=== PATIENT | male | born 1965 | race African-American/Black ===

== ENCOUNTER 2017-08-21 09:52 | Emergency (ER) | payer SELFPAY ==
[2017-08-21] MEDS ORDERED: hydrALAZINE 20 MG/ML VIAL ONE (10:36)
[2017-08-21] MEDS ORDERED: Lisinopril 10 MG TAB ONE (10:37)
[2017-08-21 10:39] LABS: #Lymphocytes 1.9 thou/uL (1.20-3.40); #Monocytes 0.4 thou/uL (0.11-0.59); #Neutrophils 4.9 thou/uL (1.40-6.50); %Basophils 0.3 % (0.0-1.0); %Eosinophils 0.5 % (0.0-10.0); %Lymphocytes 26.3 % (21.0-51.0); %Monocytes 4.9 % (0.0-10.0); %Neutrophils 68.1 % (42.0-75.0); Hemoglobin 14.2 g/dL (14.0-18.0); Mean Corpuscular HGB CONC 34.1 g/dL (32.0-36.0); Mean Corpuscular Hemoglobin 30.5 pg (27.0-31.0); Mean Corpuscular Volume 89.6 fl (80.0-94.0); Mean Platelet Volume 8.3 fL (7.4-10.4); Platelet Count 253 thou/uL (130-400); RBC Distribution Width 11.6 % (11.5-14.5); Red Blood Cell (RBC) Count 4.65 mill/uL (4.70-6.10); White Blood Cell (WBC) Count 7.2 thou/uL (4.8-10.8)
[2017-08-21 11:02] LABS: ALT (SGPT) 17 U/L (8-55); AST (SGOT) 16 U/L (5-34); Albumin 3.7 g/dL (3.5-5.0); Alkaline Phosphatase 65 U/L (40-150); Anion Gap 14 mmol/L (10-20); BUN (Urea Nitrogen) 9 mg/dL (8.4-25.7); Bilirubin, Total 0.4 mg/dL (0.2-1.2); CK (CPK) 159 U/L (30-200); Calc. Creatinine Clearance 0 mL/min (70-130); Calcium 9.1 mg/dL (7.8-10.44); Carbon Dioxide 25 mmol/L (22-29); Chloride 101 mmol/L (98-107); Estimated GFR-MDRD Greater than 90; Glucose 257 mg/dL (70-105); Lipase 15 U/L (8-78); Potassium 3.9 mmol/L (3.5-5.1); Protein, Total 7.7 g/dL (6.0-8.3); Sodium 136 mmol/L (136-145)
[2017-08-21 11:03] LABS: CKMB 2.9 ng/mL (0-6.6); Troponin I Less than 0.010 ng/mL (< 0.028)
--- NOTE | 2017-08-21 12:37 | RAD ---
PORTABLE CHEST: DATE: 08/21/17. PROVIDED CLINICAL HISTORY: Chest pain. FINDINGS: Evaluation is limited by patient body habitus. The cardiac silhouette appears enlarged. Prominence of the pulmonary vasculature and pulmonary interstitium. No definite focal airspace disease. The le ft costophrenic angle is poorly defined which may reflect pleural fluid or artifact related to habitu s. No evidence for pneumothorax. IMPRESSION: Cardiomegaly and findings suggesting congestive failure or possible left pleural effusion. POS: LARRY
[2017-08-21 15:20] LABS: Troponin I Less than 0.010 ng/mL (< 0.028)
--- NOTE | 2017-10-08 15:09 | EKG ---
Test Reason : Blood Pressure : / mmHG Vent. Rate : 097 BPM Atrial Rate : 097 BPM P-R Int : 154 ms QRS Dur : 082 ms QT Int : 340 ms P-R-T Axes : 041 004 -42 degrees QTc Int : 431 ms Normal sinus rhythm Nonspecific T wave abnormality Abnormal ECG Confirmed by HECTOR AGUILAR ([id number]), news videotape editor SANJU MAURO ([id number]) on 10/08/2017 3:09:03 PM Referred By: Confirmed By:HECTOR AGUILAR
--- NOTE | 2017-10-08 17:10 | EKG ---
Test Reason : Blood Pressure : / mmHG Vent. Rate : 101 BPM Atrial Rate : 101 BPM P-R Int : 154 ms QRS Dur : 076 ms QT Int : 344 ms P-R-T Axes : 030 -11 -49 degrees QTc Int : 446 ms Sinus tachycardia Minimal voltage criteria for LVH, may be normal variant Septal infarct , age undetermined T wave abnormality, consider inferior ischemia Abnormal ECG Confirmed by HECTOR AGUILAR ([id number]), visual effects editor SANJU MAURO ([id number]) on 10/08/2017 5:10:17 PM Referred By: Confirmed By:HECTOR AGUILAR
== END 2017-08-21 16:15 | disposition home or self-care (01) ==
LOC: ERS 09:52
DX: I10 Essential (primary) hypertension (principal); E11.9 Type 2 diabetes mellitus without complications; E78.5 Hyperlipidemia, unspecified; F41.9 Anxiety disorder, unspecified; F32.9 Major depressive disorder, single episode, unspecified; Z91.14 Patient's other noncompliance with medication regimen; Z79.899 Other long term (current) drug therapy; Z79.84 Long term (current) use of oral hypoglycemic drugs
CPT/HCPCS: 36415; 71045; 80053; 82553; 83690; 83880; 84484; 85025; 93005; 96361; 96374; J0360